=== PATIENT | female | born 1960 | race Caucasian/White ===

== ENCOUNTER 2016-09-27 05:36 | Emergency (ER) | payer OTHER ==
--- NOTE | 2016-09-27 07:51 | DIAGNOSTIC IMAGING REPORT ---
PROCEDURE: CT ABDOMEN/PELVIS W/O CONTRAST INDICATION: HEMATURIA TECHNIQUE: Noncontrast axial images with sagittal and coronal reformations. COMPARISON: None. FINDINGS: ABDOMEN: There is mild left hydronephrosis and hydroureter secondary to a 3 mm calculus in the distal third of the left ureter (axial image 64). There are multiple (6-8) nonobstructing left renal calculi (0.5 - 1 mm). Right kidney and ureter are normal. There is a 3 mm calcified gallstone at the base of the gallbladder. Liver, spleen, pancreas, and aorta are normal. Bowel pattern is normal, including appendix. Mild degenerative changes of the lower lumbar spine. PELVIS: Uterus and adnexal structures are normal. No evidence of free fluid. IMPRESSION: 1. There is mild left hydronephrosis and hydroureter secondary to a 3 mm calculus located in the distal third of the left ureter. 2. There are multiple (6-8) nonobstructing left renal calculi (0.5 - 1 mm). 3. There is a 3 mm calcified gallstone at the neck of the gallbladder (incidental finding). 4. Otherwise negative CT abdomen and pelvis. 5. Findings discussed with Dr. Sandra Schmitz. All CT scans at this facility use dose modulation, iterative reconstruction, and/or weight-based dosing when appropriate to reduce radiation dose to as low as reasonably achievable.
--- NOTE | 2016-09-27 07:53 | ED ORDER SUMMARY ---
..... Patient: ADAL CAMPBELL OrderSheet [facility] VisitID: [id number] [address] [place] [address] 56y, F Registration Date/Time: 09/27/2016 ORDER SHEET Weight: 88.4 kg (stated) Allergies: Codeine, Sulfa Antibiotics GENERAL ORDERS: UA-Culture if indicated Urgent (06:00 09/27/2016 Beto SimpsonNHaley verbal order read back to Mohit CROUCH) (6:01 Beto R.N.) CT Abd/Pel wo Cont Urgent (06:49 09/27/2016 Mohit CROUCH) (Ack 6:53 OSnell) (7:18 RFay) MEDICATION ORDERS: Bactrim DS PO (Tablet 800-160 mg) 1 tab (NOW) (07:31 09/27/2016 Mohit CROUCH) (Ack 7:35 MWinterer R.N.) (Cancelled: Allergy7:49 Mohit CROUCH) Macrobid PO 100 mg (NOW) (07:49 09/27/2016 Mohit CROUCH) (Ack 7:51 MWinterer R.N.) (8:04 MWinterer R.N.) IV FLUIDS: ORDER SHEET NOTES: [Electronically signed by Corina Khan R.N. (08:16 09/27/2016)] [Electronically signed by Sandra Schmitz MD (06:41 10/01/2016)] [Electronically locked/signed by Corina Khan R.N. (08:16 09/27/2016)]
--- NOTE | 2016-09-27 07:53 | ED CLINICAL REPORT ---
Clinical Report - Physicians/[facility] [address] [place] [address] 09/27/2016 5:37 Patient: ADAL CAMPBELL Time Seen: 05:45. Arrived- By private vehicle. Historian- patient. HISTORY OF PRESENT ILLNESS Chief Complaint: BACK PAIN and CHRONIC BACK PAIN. It is described as being moderate in degree and in the area of the left flank and radiating to the abdomen. The quality is noted to be dull and "pain". Quality not similar to prior episodes. Modifying factors. Not worsened by anything. Not relieved by anything. Onset- about 2 hours ago and it is still present. No bladder dysfunction, bowel dysfunction, sensory loss or motor loss. Patient denies an injury. No other injury. Similar symptoms previously: None. ( Pt states this feels different than her chronic back pain, and comes in waves.). Recent medical care: Not recently seen/assessed. REVIEW OF SYSTEMS No fever, chills, eye discomfort, headache or sore throat. No cough, difficulty breathing, chest pain, skin rash or vomiting. No diarrhea, black stools, difficulty with urination, urinary frequency or hematuria. No bloody stools. The patient has had mild abdominal pain. The pain is described as located in the left side of the abdomen and nausea. All systems otherwise negative, except as recorded above. PAST HISTORY Problems: Anxiety Reaction. Additional Surgeries: Breast Augmentation. Tonsillectomy. Medications: Paxil 10 mg, daily. Allergies: Codeine. Sulfa Antibiotics. SOCIAL HISTORY Former smoker. No alcohol use or drug use. ADDITIONAL NOTES The nursing notes have been reviewed. PHYSICAL EXAM Vital Signs: 09/27/2016 05:42 BP: 141/68. HR: 77. RR: 20. O2 saturation: 99%. Temp: 97.8 F. Pain level now: 4/10. Have been reviewed. Appearance: Alert. No acute distress. HEENT: Normal external inspection. Eyes: Pupils equal, round and reactive to light. Neck: Normal inspection. Painless ROM. CVS: Normal heart rate and rhythm. Heart sounds normal. Pulses normal. Respiratory: No respiratory distress. Breath sounds normal. Abdomen: Normal inspection. Soft and nontender. Back: No vertebral point tenderness or soft tissue tenderness. Skin: Skin warm and dry. Normal skin color. No rash. Normal skin turgor. Extremities: Extremities exhibit normal ROM. Extremities nontender. Neuro: Oriented X 3. Mood/affect normal. No motor deficit. No sensory deficit. LABS, X-RAYS, AND EKG CT Abdomen - Pelvis: Normal aorta. Normal liver, spleen, pancreas, gallbladder and adrenals. Appendix normal. No mass. No free fluid. No bony lesion. 1. There is mild left hydronephrosis and hydroureter secondary to a 3 mm calculus located in the distal third of the left ureter. 2. There are multiple (6-8) nonobstructing left renal calculi (0.5 - 1 mm). 3. There is a 3 mm calcified gallstone at the neck of the gallbladder (incidental finding). 4. Otherwise negative CT abdomen and pelvis. Study type: renal stone evaluation; upper abdomen; lower abdomen. Abdomen - pelvic CT performed without contrast. The study was independently viewed by me, interpreted by the radiologist and contemporaneously by me and discussed with the radiologist. Prior studies were not available for comparison. Laboratory Tests: UA-Culture if indicated: (SHAYNA: 09/27/2016 06:00) ( [id number] 09/27/2016 06:43) Final results Test Result Flag Units (Reference) URINE COLOR YELLOW URINE APPEARANCE SL CLOUDY URINE GLUCOSE NEGATIVE (NEGATIVE) URINE BILIRUBIN NEGATIVE (NEGATIVE) URINE KETONE NEGATIVE (NEGATIVE) URINE SPECIFIC GRAVITY >= 1.030 (1.010-1.030) URINE PH 5.5 (5.0-8.0) URINE PROTEIN 1+ (NEGATIVE) URINE UROBILINOGEN 0.2 EU/dL (0.2-1.0) URINE NITRITE NEGATIVE (NEGATIVE) URINE BLOOD 3+ (NEGATIVE) URINE LEUK ESTERASE TRACE (NEGATIVE) URINE RBC 10-25 rbc/hpf (0-1) URINE WBC 1-3 wbc/hpf (0-1) URINE EPITHELIAL CELLS 0-1 EPI/hpf (0-5) URINE BACTERIA TRACE (<1+) (NONE SEEN) URINE COMMENT CULTURE INDICATED CALCIUM OXALATE CRYSTALS: 5-10/HPFMUCUS 2+URINE CULTURES ARE SET-UP BASED ON THE FOLLOWING CRITERIA:POSITIVE NITRITEPOSITIVE LEUKOCYTE ESTERASEGREATER THAN 10 WHITE BLOOD CELLSMODERATE (2+) OR GREATER BACTERIA . Pulse Oximetry: 09/27/2016 05:42 O2 saturation: 99%. (FIO2 - room air). Interpretation: normal. PROGRESS AND PROCEDURES Course of Care: PT was worked up for her sx with a UA and CT abdomen/pelvis. Pt was found to have a small calculus in the L ureter. She was started on Macrobid for possible, mild UTI, and encouraged to follow up, should sx fail to resolve after 1 week. Patient counseled in person regarding the patient's stable condition, test results, diagnosis and need for follow-up. Concerns were addressed. Old medical records reviewed. Disposition: Discharged. Condition: stable. CLINICAL IMPRESSION Left nephrolithiasis with renal colic and urinary tract infection. Acute urinary tract infection with cystitis and hematuria. INSTRUCTIONS Warnings: GENERAL WARNINGS: Return or contact your physician immediately if your condition worsens or changes unexpectedly, if not improving as expected, or if other problems arise. Your Current Medications: CONTINUE TAKING THE FOLLOWING MEDICATIONS: Paxil* : 10 mg daily. Prescription Medications: Hydrocodone/APAP 5mg / 325mg: take 1-2 orally every 6 hours as needed for pain. Dispense twelve (12). No refill. Zofran (orally disintegrating tablets) 4 mg: take 1-2 orally every 6 hours as needed for nausea. Dispense ten (10). No refill. Substitution is permissible. Macrodantin 100 mg: take 1 capsule orally every 6 hours for 7 days. No refill. Substitution is permissible. Follow-up: Follow up with your doctor in seven days if not better. Understanding of the discharge instructions verbalized by patient. (Electronically signed by Sandra Schmitz MD 10/01/2016 6:41)
--- NOTE | 2016-09-27 07:53 | ED NURSING NOTES ---
Clinical Report - Nurses [facility] [address] [place] [address] 09/27/2016 5:37 Patient: ADAL CAMPBELL TRIAGE Triage time 05:42 Sep 27 2016. Acuity: LEVEL 4. Chief Complaint: LEFT-SIDED FLANK PAIN. 05:47 09/27/16. Alert. No acute distress. SEPSIS SCREEN: Sepsis Screen. Negative (no infection suspected/documented). --05:47 Mandy Michael R.N. 05:42 09/27/16. BP: 141/68. HR: 77. RR: 20. O2 saturation: 99% on room air. Temp: 97.8 F. Pain level now: 01/04. --05:47 Mandy Michael R.N. 06:01 09/27/16. --06:01 Mandy Michael R.N. Weight: 88.4 kg stated. Height/Length: 66 inches Per Patient. BMI: 31.5. --05:46 Mandy Michael R.N. Medications Paxil 10 mg, daily. --05:44 Mandy Michael R.N. Medication/allergy information source: the patient. --05:47 Mandy Michael R.N. Allergies Codeine. --05:44 Mandy Michael R.N. Sulfa Antibiotics. --05:44 Mandy Michael R.N. History Arrived by private vehicle. Historian: patient. This started today. ( 3am today with left flank pain/back pain per pt with no injury). She has had flank pain. 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 PAST MEDICAL HX: Immunizations: up-to-date and (tetanus only). SOCIAL HX: Former smoker. No alcohol use or drug use. FALL RISK ASSESSMENT: Fall risk assessment completed. No fall risk identified. NUTRITIONAL RISK ASSESSMENT: The nutritional risk assessment revealed no deficiencies. FUNCTIONAL ASSESSMENT: Functional assessment: no impairments noted. LEARNING NEEDS ASSESSMENT: The learning needs assessment revealed no barriers. SKIN INTEGRITY ASSESSMENT: Skin integrity risk assessment completed. No skin integrity risk identified. --05:47 Mandy Michael R.N. PAST MEDICAL HX: The patient is post-menopausal. --06:01 Mandy Michael R.N. PROBLEMS: Animal Bite. Anxiety Reaction. --05:45 Mandy Michael R.N. ADDITIONAL SURGERIES: Breast Augmentation. Tonsillectomy. --05:45 Mandy Michael R.N. Interventions ID and allergy band on patient. To treatment room. --05:47 Mandy Michael R.N. PHYSICAL ASSESSMENT 05:49 09/27/16. Ambulatory to room. Patient gowned. GENERAL / NEURO / PSYCH: Alert. Oriented X 4. Appears in pain. HEENT: Mucous membranes are pink. RESPIRATORY: Respirations not labored. Breath sounds within normal limits. CVS: Normal heart rate and rhythm. Capillary refill less than 2 seconds. GI / : Abdomen soft. Abdominal tenderness (left flank). Bowel sounds within normal limits. Urgency of urination. SKIN: Skin is warm and dry. BACK: ( left flank/lower back). --05:49 Mandy Michael R.N. NURSING PROGRESS NOTES 05:49 09/27/16. The plan of care for this patient has been created. Patient gowned. Head of bed elevated. Reassurance given. Two patient identifiers checked. Call light placed in reach. Side rails up x 2. Bed placed in lowest position. Brakes of bed on. Patient ready for evaluation- ED physician notified. --05:49 Mandy Michael R.N. 07:54 09/27/2016 Macrobid PO 100 mg given. Allergies verified and confirmed 5 rights. --08:04 Corina Khan R.N. DISPOSITION / DISCHARGE Departure time: 08:00 Sep 27 2016. Condition at departure: improved and stable. No learning barriers present. Reviewed medication(s) side effects, precautions and dosing information. Prescription(s) given to the patient. Patient verbalized understanding. Written instructions provided in Jordanian. The patient was discharged by the physician. She was discharged home and accompanied by spouse. She left the Emergency Department ambulatory and via private vehicle. Spouse driving. --08:16 Corina Khan R.N. 08:15 09/27/16. BP: 147/77. HR: 72. RR: 16. O2 saturation: 98% on room air. Temp: 97.9 F (oral). Pain level now: 02/03. --08:16 Corina Khan R.N. Locked/Released at 09/27/2016 8:16 by Corina Khan R.N.
--- NOTE | 2016-09-27 07:53 | ED NURSING NOTES ---
Clinical Report - Nurses [facility] [address] [place] [address] 09/27/2016 5:37 Patient: ADAL CAMPBELL TRIAGE Triage time 05:42 Sep 27 2016. Acuity: LEVEL 4. Chief Complaint: LEFT-SIDED FLANK PAIN. 05:47 09/27/16. Alert. No acute distress. SEPSIS SCREEN: Sepsis Screen. Negative (no infection suspected/documented). --05:47 Mandy Michael R.N. 05:42 09/27/16. BP: 141/68. HR: 77. RR: 20. O2 saturation: 99% on room air. Temp: 97.8 F. Pain level now: 01/04. --05:47 Mandy Michael R.N. 06:01 09/27/16. --06:01 Mandy Michael R.N. Weight: 88.4 kg stated. Height/Length: 66 inches Per Patient. BMI: 31.5. --05:46 Mandy Michael R.N. Medications Paxil 10 mg, daily. --05:44 Mandy Michael R.N. Medication/allergy information source: the patient. --05:47 Mandy Michael R.N. Allergies Codeine. --05:44 Mandy Michael R.N. Sulfa Antibiotics. --05:44 Mandy Michael R.N. History Arrived by private vehicle. Historian: patient. This started today. ( 3am today with left flank pain/back pain per pt with no injury). She has had flank pain. 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 PAST MEDICAL HX: Immunizations: up-to-date and (tetanus only). SOCIAL HX: Former smoker. No alcohol use or drug use. FALL RISK ASSESSMENT: Fall risk assessment completed. No fall risk identified. NUTRITIONAL RISK ASSESSMENT: The nutritional risk assessment revealed no deficiencies. FUNCTIONAL ASSESSMENT: Functional assessment: no impairments noted. LEARNING NEEDS ASSESSMENT: The learning needs assessment revealed no barriers. SKIN INTEGRITY ASSESSMENT: Skin integrity risk assessment completed. No skin integrity risk identified. --05:47 Mandy Michael R.N. PAST MEDICAL HX: The patient is post-menopausal. --06:01 Mandy Michael R.N. PROBLEMS: Animal Bite. Anxiety Reaction. --05:45 Mandy Michael R.N. ADDITIONAL SURGERIES: Breast Augmentation. Tonsillectomy. --05:45 Mandy Michael R.N. Interventions ID and allergy band on patient. To treatment room. --05:47 Mandy Michael R.N. PHYSICAL ASSESSMENT 05:49 09/27/16. Ambulatory to room. Patient gowned. GENERAL / NEURO / PSYCH: Alert. Oriented X 4. Appears in pain. HEENT: Mucous membranes are pink. RESPIRATORY: Respirations not labored. Breath sounds within normal limits. CVS: Normal heart rate and rhythm. Capillary refill less than 2 seconds. GI / : Abdomen soft. Abdominal tenderness (left flank). Bowel sounds within normal limits. Urgency of urination. SKIN: Skin is warm and dry. BACK: ( left flank/lower back). --05:49 Mandy Michael R.N. NURSING PROGRESS NOTES 05:49 09/27/16. The plan of care for this patient has been created. Patient gowned. Head of bed elevated. Reassurance given. Two patient identifiers checked. Call light placed in reach. Side rails up x 2. Bed placed in lowest position. Brakes of bed on. Patient ready for evaluation- ED physician notified. --05:49 Mandy Michael R.N. 07:54 09/27/2016 Macrobid PO 100 mg given. Allergies verified and confirmed 5 rights. --08:04 Corina Khan R.N. DISPOSITION / DISCHARGE Departure time: 08:00 Sep 27 2016. Condition at departure: improved and stable. No learning barriers present. Reviewed medication(s) side effects, precautions and dosing information. Prescription(s) given to the patient. Patient verbalized understanding. Written instructions provided in Cypriot. The patient was discharged by the physician. She was discharged home and accompanied by spouse. She left the Emergency Department ambulatory and via private vehicle. Spouse driving. --08:16 Corina Khan R.N. 08:15 09/27/16. BP: 147/77. HR: 72. RR: 16. O2 saturation: 98% on room air. Temp: 97.9 F (oral). Pain level now: 02/03. --08:16 Corina Khan R.N. Locked/Released at 09/27/2016 8:16 by Corina Khan R.N.
--- NOTE | 2016-09-27 07:53 | ED ORDER SUMMARY ---
..... Patient: ADAL CAMPBELL OrderSheet [facility] VisitID: [id number] [address] [place] [address] 56y, F Registration Date/Time: 09/27/2016 ORDER SHEET Weight: 88.4 kg (stated) Allergies: Codeine, Sulfa Antibiotics GENERAL ORDERS: UA-Culture if indicated Urgent (06:00 09/27/2016 Beto SimpsonNHaley verbal order read back to Mohit CROUCH) (6:01 Beto R.N.) CT Abd/Pel wo Cont Urgent (06:49 09/27/2016 Mohit CROUCH) (Ack 6:53 OSnell) (7:18 RFay) MEDICATION ORDERS: Bactrim DS PO (Tablet 800-160 mg) 1 tab (NOW) (07:31 09/27/2016 Mohit CROUCH) (Ack 7:35 MWinterer R.N.) (Cancelled: Allergy7:49 Mohit CROUCH) Macrobid PO 100 mg (NOW) (07:49 09/27/2016 Mohit CROUCH) (Ack 7:51 MWinterer R.N.) (8:04 MWinterer R.N.) IV FLUIDS: ORDER SHEET NOTES: [Electronically signed by Corina Khan R.N. (08:16 09/27/2016)] [Electronically signed by Sandra Schmitz MD (06:41 10/01/2016)] [Electronically locked/signed by Corina Khan R.N. (08:16 09/27/2016)]
--- NOTE | 2016-10-01 06:42 | ED MED RECONCILIATION SUMMARY ---
Patient: ADAL CAMPBELL Medication Reconciliation Report [facility] VisitID: [id number] [address] [place] [address] 56y, F Registration Date/Time: 09/27/2016 Weight: 88.4 kg Height/Length: 66 in. BMI: 31.5 ALLERGIES: Codeine, Sulfa Antibiotics The patient's Home Medications are listed below: CONTINUE TAKING THE FOLLOWING MEDICATIONS: Paxil 10 mg, daily The source(s) of the original Home Medication information: patient The following Medications were given to the patient in the Emergency Department: Macrobid [PO] PO 100 mg, administered: 09/27/2016 7:54:00 AM The following Medications were prescribed to the patient: Hydrocodone/APAP 5mg / 325mg: take 1-2 orally every 6 hours as needed for pain. Dispense twelve (12). No refill. -- Sandra Schmitz MD Zofran (orally disintegrating tablets) 4 mg: take 1-2 orally every 6 hours as needed for nausea. Dispense ten (10). No refill. Substitution is permissible. -- Sandra Schmitz MD Macrodantin 100 mg: take 1 capsule orally every 6 hours for 7 days. No refill. Substitution is permissible. -- Sandra Schmitz MD
--- NOTE | 2016-10-01 06:42 | ED MED RECONCILIATION SUMMARY ---
Patient: ADAL CAMPBELL Medication Reconciliation Report [facility] VisitID: [id number] [address] [place] [address] 56y, F Registration Date/Time: 09/27/2016 Weight: 88.4 kg Height/Length: 66 in. BMI: 31.5 ALLERGIES: Codeine, Sulfa Antibiotics The patient's Home Medications are listed below: CONTINUE TAKING THE FOLLOWING MEDICATIONS: Paxil 10 mg, daily The source(s) of the original Home Medication information: patient The following Medications were given to the patient in the Emergency Department: Macrobid [PO] PO 100 mg, administered: 09/27/2016 7:54:00 AM The following Medications were prescribed to the patient: Hydrocodone/APAP 5mg / 325mg: take 1-2 orally every 6 hours as needed for pain. Dispense twelve (12). No refill. -- Sandra Schmitz MD Zofran (orally disintegrating tablets) 4 mg: take 1-2 orally every 6 hours as needed for nausea. Dispense ten (10). No refill. Substitution is permissible. -- Sandra Schmitz MD Macrodantin 100 mg: take 1 capsule orally every 6 hours for 7 days. No refill. Substitution is permissible. -- Sandra Schmitz MD
--- NOTE | 2016-10-01 06:42 | ED DISCHARGE INSTRUCTIONS ---
Patient: ADAL CAMPBELL General Instructions [facility] VisitID: [id number] [place] [address] 56y, F Registration Date/Time: 09/27/2016 Left nephrolithiasis with renal colic and urinary tract infection. Acute urinary tract infection with cystitis and hematuria. INSTRUCTIONS Warnings: GENERAL WARNINGS: Return or contact your physician immediately if your condition worsens or changes unexpectedly, if not improving as expected, or if other problems arise. Your Current Medications: CONTINUE TAKING THE FOLLOWING MEDICATIONS: Paxil* : 10 mg daily. Prescription Medications: Hydrocodone/APAP 5mg / 325mg: take 1-2 orally every 6 hours as needed for pain. Dispense twelve (12). No refill. Zofran (orally disintegrating tablets) 4 mg: take 1-2 orally every 6 hours as needed for nausea. Dispense ten (10). No refill. Substitution is permissible. Macrodantin 100 mg: take 1 capsule orally every 6 hours for 7 days. No refill. Substitution is permissible. Follow-up: Follow up with your doctor in seven days if not better. Understanding of the discharge instructions verbalized by patient. ADDITIONAL INFORMATION Kidney Stone (W/ Colic) The sharp cramping pain and nausea/vomiting that you have is due to a small stone which has formed in the kidney and is now passing down a narrow tube (ureter) on its way to your bladder. Once it reaches your bladder, the pain will stop. The stone may pass in your urine stream in one piece. [The size may be 1/16" to 1/4" (1-6mm)]. Or, the stone may also break up into artis fragments which you may not even notice. Once you have had a kidney stone, you are at risk for developing another one in the future. Home Care: Drink plenty of fluids (at least 8 to 10 glasses of water a day). Most stones will pass on their own, but may take from a few hours to a few days. Sometimes the stone is too large to pass by itself and special methods will have to be used to remove the stone. Each time you urinate, do so in a jar. Pour the urine from the jar through the strainer and into the toilet. Continue doing this until 24 hours after your pain stops. By then, if there was a kidney stone, it should pass from your bladder. Some stones dissolve into sand-like particles and pass right through the strainer. In that case, you wont ever see a stone. Save any stone that you find in the strainer and bring it to your doctor for analysis. It may be possible to prevent certain types of stones from forming. Therefore, it is important to know what kind of stone you have. Try to stay as active as possible since this will help the stone pass. Do not stay in bed unless your pain prevents you from getting up. You may notice a red, pink or brown color to your urine. This is normal while passing a kidney stone. Follow Up with your doctor or return to this facility if the pain lasts more than 48 hours. Get Prompt Medical Attention if any of the following occur: Pain that is not controlled by the medicine given Repeated vomiting or unable to keep down fluids Weakness, dizziness or fainting Fever of 100.4F (38C) or higher, or as directed by your healthcare provider Passage of solid red or brown urine (can't see through it) or urine with lots of blood clots Unable to pass urine for 8 hours and increasing bladder pressure Bladder Infection,Female (Adult) A bladder infection ("cystitis" or "UTI") usually causes a constant urge to urinate and a burning when passing urine. Urine may be cloudy, smelly or dark. There may be pain in the lower abdomen. A bladder infection occurs when bacteria from the vaginal area enter the bladder opening (urethra). This can occur from sexual intercourse, wearing tight clothing, dehydration and other factors. Home Care: Drink lots of fluids (at least 6-8 glasses a day, unless you must restrict fluids for other medical reasons). This will force the medicine into your urinary system and flush the bacteria out of your body. Avoid sexual intercourse until your symptoms are gone. Avoid caffeine, alcohol and spicy foods. These can irritate the bladder. A bladder infection is treated with antibiotics. You may also be given Pyridium (generic = phenazopyridine) to reduce the burning sensation. This medicine will cause your urine to become a bright orange color. The orange urine may stain clothing. You may wear a pad or panty-liner to protect clothing. Preventing Future Infections: Always wipe from front to back after a bowel movement. Keep the genital area clean and dry. Drink plenty of fluids each day to avoid dehydration. Both sexual partners should wash before intercourse. Urinate right after intercourse to flush out the bladder. Wear cotton underwear and cotton-lined panty hose; avoid tight-fitting pants. If you are on control pills and are having frequent bladder infections, discuss with your doctor. Follow Up: Return to this facility or see your doctor if ALL symptoms are not gone after three days of treatment. Get Prompt Medical Attention if any of the following occur: Fever of 100.4F (38C) or higher, or as directed by your healthcare provider No improvement by the third day of treatment Increasing back or abdominal pain Repeated vomiting; unable to keep medicine down Weakness, dizziness or fainting Vaginal discharge Pain, redness or swelling in the labia (outer vaginal area) You have been given the following additional information: Kidney Stone W/ Colic Bladder Infection, Female (Adult) (Electronically signed by Sandra Schmitz MD 10/01/2016 6:41)
--- NOTE | 2016-10-01 06:42 | ED MAR SUMMARY ---
..... Medication Administration Record [address] [place] [address] Patient: ADAL CAMPBELL Visit ID: [id number] 56y, F Weight: 88.4 kg Height/Length: 66 in BMI: 31.5 ALLERGIES: Sulfa Antibiotics, Codeine Given 07:54 09/27/2016 Corina Khan R.N. Medication Administered: MACROBID [PO], Dose: 100 mg PO. Medication Ordered: Macrobid PO 100 mg (NOW).
--- NOTE | 2016-10-01 06:42 | ED MAR SUMMARY ---
..... Medication Administration Record [address] [place] [address] Patient: ADAL CAMPBELL Visit ID: [id number] 56y, F Weight: 88.4 kg Height/Length: 66 in BMI: 31.5 ALLERGIES: Sulfa Antibiotics, Codeine Given 07:54 09/27/2016 Corina Khan R.N. Medication Administered: MACROBID [PO], Dose: 100 mg PO. Medication Ordered: Macrobid PO 100 mg (NOW).
== END 2016-09-27 08:00 | disposition home or self-care (01) ==
LOC: ED SRH 05:36
DX: N30.01 Acute cystitis with hematuria (principal); N20.0 Calculus of kidney; N23 Unspecified renal colic; Z88.2 Allergy status to sulfonamides; Z88.5 Allergy status to narcotic agent
CPT/HCPCS: 90004; 90469

== ENCOUNTER 2017-03-17 15:50 | Emergency (ER) | payer OTHER ==
--- NOTE | 2017-03-17 16:54 | DIAGNOSTIC IMAGING REPORT ---
PROCEDURE: XR CHEST 1 VIEW INDICATION: SHORTNESS OF BREATH TECHNIQUE: Portable AP view 04:15 p.m. COMPARISON: Chest 10/01/2009 FINDINGS: Lungs are clear. Heart and mediastinum are normal. Thorax is normal. IMPRESSION: 1. Negative chest.
--- NOTE | 2017-03-17 18:21 | ED NURSING NOTES ---
Clinical Report - Nurses [facility] [place] [address] 03/17/2017 15:51 Patient: ADAL CAMPBELL TRIAGE Triage time 16:00. Acuity: LEVEL 3. Chief Complaint: SHORTNESS OF BREATH. 15:53 03/17/17. 15:53 03/17/17. Alert. SEPSIS SCREEN: Sepsis Screen. Negative (no infection suspected/documented). --16:01 Sandeep Cardenas R.N. 15:52 03/17/17. BP: 119/97. HR: 88. RR: 20. O2 saturation: 100% on room air. Temp: 97.8 F (oral). Pain level now: 0/10. --16:01 Sandeep Cardenas R.N. ( Pt has been under a lot of stress recently due to family issues, demanding parents, aging parents). --16:04 Sandeep Cardenas R.N. Weight: 88.4 kg stated. Height/Length: 66 inches Per Patient. BMI: 31.5. --15:53 Sandeep Cardenas R.N. Medications Amoxicillin Oral. --15:55 Sandeep Cardenas R.N. Medication/allergy information source: the patient. --16:01 Sandeep Cardenas R.N. Allergies Codeine. Sulfa Antibiotics. --15:55 Sandeep Cardenas R.N. History Arrived by private vehicle. Historian: patient. Accompanied by family. Primary physician (LALITO HARKINS). 15:53 03/17/17. ( 2 DAYS AGO, pt was started on abx this past Wednesday for right ear infection.). No fever, chills or cough. 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 PAST MEDICAL HX: Immunizations not up to date. SOCIAL HX: Never smoker. No alcohol use or drug use. No infectious disease exposure. ABUSE ASSESSMENT: No report of abuse. FALL RISK ASSESSMENT: Fall risk assessment completed. No fall risk identified. NUTRITIONAL RISK ASSESSMENT: The nutritional risk assessment revealed no deficiencies. FUNCTIONAL ASSESSMENT: Functional assessment: no impairments noted. LEARNING NEEDS ASSESSMENT: The learning needs assessment revealed no barriers. SKIN INTEGRITY ASSESSMENT: Skin integrity risk assessment completed. No skin integrity risk identified. --16:01 Sandeep Cardenas R.N. PROBLEMS: UTI - Urinary Tract Infection. Nephrolithiasis. Animal Bite. Anxiety Reaction. --15:55 Sandeep Cardenas R.N. ADDITIONAL SURGERIES: Breast Augmentation. Tonsillectomy. --15:55 Sandeep Cardenas R.N. Assessment 15:53 03/17/17. --16:01 Sandeep Cardenas R.N. Interventions 15:53 03/17/17. 15:53 03/17/17. ID and allergy band on patient. To treatment room. --16:01 Sandeep Cardenas R.N. PHYSICAL ASSESSMENT 15:54 03/17/17. Ambulatory to room. GENERAL / NEURO / PSYCH: Alert. Oriented X 4. RESPIRATORY: Mild respiratory distress. The patient can speak a few words at a time. CVS: Capillary refill less than 2 seconds. SKIN: Skin is warm and dry. --15:54 Sandeep Cardenas R.N. NURSING PROGRESS NOTES 15:54 03/17/17. The plan of care for this patient has been created. shelter monitor, pulse oximeter and NIBP monitor placed on patient; monitor alarms on. Patient gowned. Head of bed elevated. Two patient identifiers checked. Call light placed in reach. Side rails up x 2. Bed placed in lowest position. Brakes of bed on. --15:54 Sandeep Cardenas R.N. 15:58 03/17/2017 Site #1 started via IV in the right antecubital space with an 20g angiocath, with aseptic technique and good blood return; one attempt. Blood drawn: rainbow set. Labeled in the presence of the patient and sent to the lab. Saline lock flushed with 10 mL saline. --15:58 Sandeep Cardenas R.N. 16:00 03/17/17. EKG time: (1601 PM). EKG was ordered, performed by a tech and shown to the ED physician. --16:00 Sandeep Cardenas R.N. 16:03/17/17. Cardiac rhythm: normal sinus rhythm. --16:00 Sandeep Cardenas R.N. 16:01 03/17/17. shelter monitor, pulse oximeter and NIBP monitor placed on patient. --16:01 Sandeep Cardenas R.N. 16:03 03/17/17. Cardiac rhythm: normal sinus rhythm. --16:04 Sandeep Cardenas R.N. 16:03 03/17/17. BP: 132/70. HR: 83. RR: 20. O2 saturation: 100% on room air. --16:04 Sandeep Cardenas R.N. 16:07 03/17/17. ( Placed on oxygen at 2L for patient comfort). --16:07 Sandeep Cardenas R.N. 16:03/17/17. --16:07 Sandeep Cardenas R.N. 16:03/17/17. O2 saturation: 100%. O2 started via nasal cannula at 2 liters/minute. --16:07 Sandeep Cardenas R.N. 16:51 03/17/17. Patient and family informed about reason for wait and about plan of care. --16:51 Sandeep Cardenas R.N. 17:00 03/17/17. ( at bedside). --17:00 Sandeep Cardenas R.N. 17:36 03/17/17. Patient ID band checked for patient name and birthdate. Clean catch urine collected with return of cassidy-colored urine; sample sent to lab for urinalysis and culture. Specimen labeled in the presence of the patient. --17:36 Sandeep Cardenas R.N. 17:51 03/17/17. Patient and family informed about reason for wait and about plan of care. --17:51 Sandeep Cardenas R.N. 17:51 03/17/17. Patient waiting for disposition. --17:51 Sandeep Cardenas R.N. DISPOSITION / DISCHARGE 18:50 03/17/2017 Site #1 removed upon discharge. Catheter intact. --18:50 Sandeep Cardenas R.N. 18:51 03/17/17. Condition at departure: improved. The goals identified in the patient's plan of care were met. No learning barriers present. Discharge instructions provided and reviewed with the patient and spouse. Reviewed warnings. Reviewed medication(s). Treatments reviewed. Patient and spouse verbalized understanding. Written instructions provided in Macedonian. The patient was discharged by the physician. She was discharged home and accompanied by family. She left the Emergency Department ambulatory and via private vehicle. Family member driving. FALL RISK ASSESSMENT: Fall risk assessment completed. No fall risk identified. --18:51 Sandeep Cardenas R.N. 18:50 03/17/17. BP: 116/72. HR: 80. RR: 15. O2 saturation: 99% on room air. Temp: 98.2 F (oral). --18:51 Sandeep Cardenas R.N. 18:51 03/17/17. Departure time: 18:51 Mar 17 2017. --18:51 Sandeep Cardenas R.N. Locked/Released at 03/17/2017 18:53 by Sandeep Cardenas R.N.
--- NOTE | 2017-03-17 18:21 | ED ORDER SUMMARY ---
..... Patient: ADAL CAMPBELL OrderSheet [facility] VisitID: [id number] [place] [address] 56y, F Registration Date/Time: 03/17/2017 ORDER SHEET Weight: 88.4 kg (stated) Allergies: Codeine, Sulfa Antibiotics GENERAL ORDERS: Chest 1V Urgent (15:57 03/17/2017 JBoardley R.N. per protocol) (Ack 16:06 LNations ER Tech1) (16:13 JBoardley R.N.) Digital Coordinator (Continuous) (15:58 03/17/2017 JBoardley R.N. per protocol) (15:58 JBoardley R.N.) CBC w Diff Urgent (15:58 03/17/2017 JBoardley R.N. per protocol) (Ack 16:06 LNations ER Tech1) (16:13 JBoardley R.N.) CMP Urgent (15:58 03/17/2017 JBoardley R.N. per protocol) (Ack 16:06 LNations ER Tech1) (16:13 JBoardley R.N.) Pulse oximeter (15:58 03/17/2017 JBoardley R.N. per protocol) (15:58 JBoardley R.N.) EKG - ER Stat (15:58 03/17/2017 JBoardley R.N. per protocol) (15:58 JBoardley R.N.) Amylase Urgent (16:05 03/17/2017 Wallace CROUCH) (Ack 16:06 LNations ER Tech1) (16:13 JBoardley R.N.) Lipase Urgent (16:05 03/17/2017 Wallace CROUCH) (Ack 16:06 LNations ER Tech1) (16:13 JBoardley R.N.) CPK Urgent (16:05 03/17/2017 Wallace CROUCH) (Ack 16:06 LNations ER Tech1) (16:13 JBoardley R.N.) Troponin-I Urgent (16:05 03/17/2017 Wallace CROUCH) (Ack 16:06 LNations ER Tech1) (16:13 JBoardley R.N.) BNP Urgent (16:05 03/17/2017 Wallace CROUCH) (Ack 16:06 LNations ER Tech1) (16:13 JBoardley R.N.) D-Dimer Urgent (16:05 03/17/2017 Wallace CROUCH) (Ack 16:06 LNations ER Tech1) (16:13 JBoardley R.N.) UA-Culture if indicated Urgent (17:06 03/17/2017 Wallace CROUCH) (Ack 17:21 LNations ER Tech1) (17:35 JBoardley R.N.) MEDICATION ORDERS: IV FLUIDS: IV Saline Lock (15:58 03/17/2017 JBoardley R.N. per protocol) (15:58 JBoardley R.N.) IV Saline Lock (16:05 03/17/2017 Wallace CROUCH) (Cancelled: Other16:06 JBoardley R.N.) ORDER SHEET NOTES: [Electronically signed by Sandeep Cardenas R.N. (18:53 03/17/2017)] [Electronically signed by Fredi Loyola MD (21:30 03/18/2017)] [Electronically locked/signed by Sandeep Cardenas R.N. (18:53 03/17/2017)]
--- NOTE | 2017-03-17 18:21 | ED NURSING NOTES ---
Clinical Report - Nurses [facility] [place] [address] 03/17/2017 15:51 Patient: ADAL CAMPBELL TRIAGE Triage time 16:00. Acuity: LEVEL 3. Chief Complaint: SHORTNESS OF BREATH. 15:53 03/17/17. 15:53 03/17/17. Alert. SEPSIS SCREEN: Sepsis Screen. Negative (no infection suspected/documented). --16:01 Sandeep Cardenas R.N. 15:52 03/17/17. BP: 119/97. HR: 88. RR: 20. O2 saturation: 100% on room air. Temp: 97.8 F (oral). Pain level now: 0/10. --16:01 Sandeep Cardenas R.N. ( Pt has been under a lot of stress recently due to family issues, demanding parents, aging parents). --16:04 Sandeep Cardenas R.N. Weight: 88.4 kg stated. Height/Length: 66 inches Per Patient. BMI: 31.5. --15:53 Sandeep Cardenas R.N. Medications Amoxicillin Oral. --15:55 Sandeep Cardenas R.N. Medication/allergy information source: the patient. --16:01 Sanedep Cardenas R.N. Allergies Codeine. Sulfa Antibiotics. --15:55 Sandeep Cardenas R.N. History Arrived by private vehicle. Historian: patient. Accompanied by family. Primary physician (LALITO HARKINS). 15:53 03/17/17. ( 2 DAYS AGO, pt was started on abx this past Wednesday for right ear infection.). No fever, chills or cough. 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 PAST MEDICAL HX: Immunizations not up to date. SOCIAL HX: Never smoker. No alcohol use or drug use. No infectious disease exposure. ABUSE ASSESSMENT: No report of abuse. FALL RISK ASSESSMENT: Fall risk assessment completed. No fall risk identified. NUTRITIONAL RISK ASSESSMENT: The nutritional risk assessment revealed no deficiencies. FUNCTIONAL ASSESSMENT: Functional assessment: no impairments noted. LEARNING NEEDS ASSESSMENT: The learning needs assessment revealed no barriers. SKIN INTEGRITY ASSESSMENT: Skin integrity risk assessment completed. No skin integrity risk identified. --16:01 Sandeep Cardenas R.N. PROBLEMS: UTI - Urinary Tract Infection. Nephrolithiasis. Animal Bite. Anxiety Reaction. --15:55 Sandeep Cardenas R.N. ADDITIONAL SURGERIES: Breast Augmentation. Tonsillectomy. --15:55 Sandeep Cardenas R.N. Assessment 15:53 03/17/17. --16:01 Sandeep Cardenas R.N. Interventions 15:53 03/17/17. 15:53 03/17/17. ID and allergy band on patient. To treatment room. --16:01 Sandeep Cardenas R.N. PHYSICAL ASSESSMENT 15:54 03/17/17. Ambulatory to room. GENERAL / NEURO / PSYCH: Alert. Oriented X 4. RESPIRATORY: Mild respiratory distress. The patient can speak a few words at a time. CVS: Capillary refill less than 2 seconds. SKIN: Skin is warm and dry. --15:54 Sandeep Cardenas R.N. NURSING PROGRESS NOTES 15:54 03/17/17. The plan of care for this patient has been created. surveillance monitor, pulse oximeter and NIBP monitor placed on patient; monitor alarms on. Patient gowned. Head of bed elevated. Two patient identifiers checked. Call light placed in reach. Side rails up x 2. Bed placed in lowest position. Brakes of bed on. --15:54 Sandeep Cardenas R.N. 15:58 03/17/2017 Site #1 started via IV in the right antecubital space with an 20g angiocath, with aseptic technique and good blood return; one attempt. Blood drawn: rainbow set. Labeled in the presence of the patient and sent to the lab. Saline lock flushed with 10 mL saline. --15:58 Sandeep Cardenas R.N. 16:00 03/17/17. EKG time: (1601 PM). EKG was ordered, performed by a tech and shown to the ED physician. --16:00 Sandeep Cardenas R.N. 16:03/17/17. Cardiac rhythm: normal sinus rhythm. --16:00 Sandeep Cardenas R.N. 16:01 03/17/17. surveillance monitor, pulse oximeter and NIBP monitor placed on patient. --16:01 Sandeep Cardenas R.N. 16:03 03/17/17. Cardiac rhythm: normal sinus rhythm. --16:04 Sandeep Cardenas R.N. 16:03 03/17/17. BP: 132/70. HR: 83. RR: 20. O2 saturation: 100% on room air. --16:04 Sandeep Cardenas R.N. 16:07 03/17/17. ( Placed on oxygen at 2L for patient comfort). --16:07 Sandeep Cardenas R.N. 16:03/17/17. --16:07 Sandeep Cardenas R.N. 16:03/17/17. O2 saturation: 100%. O2 started via nasal cannula at 2 liters/minute. --16:07 Sandeep Cardenas R.N. 16:51 03/17/17. Patient and family informed about reason for wait and about plan of care. --16:51 Sandeep Cardenas R.N. 17:00 03/17/17. ( at bedside). --17:00 Sandeep Cardenas R.N. 17:36 03/17/17. Patient ID band checked for patient name and birthdate. Clean catch urine collected with return of cassidy-colored urine; sample sent to lab for urinalysis and culture. Specimen labeled in the presence of the patient. --17:36 Sandeep Cardenas R.N. 17:51 03/17/17. Patient and family informed about reason for wait and about plan of care. --17:51 Sandeep Cardenas R.N. 17:51 03/17/17. Patient waiting for disposition. --17:51 Sandeep Cardenas R.N. DISPOSITION / DISCHARGE 18:50 03/17/2017 Site #1 removed upon discharge. Catheter intact. --18:50 Sandeep Cardenas R.N. 18:51 03/17/17. Condition at departure: improved. The goals identified in the patient's plan of care were met. No learning barriers present. Discharge instructions provided and reviewed with the patient and spouse. Reviewed warnings. Reviewed medication(s). Treatments reviewed. Patient and spouse verbalized understanding. Written instructions provided in Yoruba. The patient was discharged by the physician. She was discharged home and accompanied by family. She left the Emergency Department ambulatory and via private vehicle. Family member driving. FALL RISK ASSESSMENT: Fall risk assessment completed. No fall risk identified. --18:51 Sandeep Cardenas R.N. 18:50 03/17/17. BP: 116/72. HR: 80. RR: 15. O2 saturation: 99% on room air. Temp: 98.2 F (oral). --18:51 Sandeep Cardenas R.N. 18:51 03/17/17. Departure time: 18:51 Mar 17 2017. --18:51 Sandeep Cardenas R.N. Locked/Released at 03/17/2017 18:53 by Sandeep Cardenas R.N.
--- NOTE | 2017-03-17 18:21 | ED ORDER SUMMARY ---
..... Patient: ADAL CAMPBELL OrderSheet [facility] VisitID: [id number] [place] [address] 56y, F Registration Date/Time: 03/17/2017 ORDER SHEET Weight: 88.4 kg (stated) Allergies: Codeine, Sulfa Antibiotics GENERAL ORDERS: Chest 1V Urgent (15:57 03/17/2017 JBoardley R.N. per protocol) (Ack 16:06 LNations ER Tech1) (16:13 JBoardley R.N.) Hospice Coordinator (Continuous) (15:58 03/17/2017 JBoardley R.N. per protocol) (15:58 JBoardley R.N.) CBC w Diff Urgent (15:58 03/17/2017 JBoardley R.N. per protocol) (Ack 16:06 LNations ER Tech1) (16:13 JBoardley R.N.) CMP Urgent (15:58 03/17/2017 JBoardley R.N. per protocol) (Ack 16:06 LNations ER Tech1) (16:13 JBoardley R.N.) Pulse oximeter (15:58 03/17/2017 JBoardley R.N. per protocol) (15:58 JBoardley R.N.) EKG - ER Stat (15:58 03/17/2017 JBoardley R.N. per protocol) (15:58 JBoardley R.N.) Amylase Urgent (16:05 03/17/2017 Wallace CROUCH) (Ack 16:06 LNations ER Tech1) (16:13 JBoardley R.N.) Lipase Urgent (16:05 03/17/2017 Wallace CROUCH) (Ack 16:06 LNations ER Tech1) (16:13 JBoardley R.N.) CPK Urgent (16:05 03/17/2017 Wallace CROUCH) (Ack 16:06 LNations ER Tech1) (16:13 JBoardley R.N.) Troponin-I Urgent (16:05 03/17/2017 Wallace CROUCH) (Ack 16:06 LNations ER Tech1) (16:13 JBoardley R.N.) BNP Urgent (16:05 03/17/2017 Wallace CROUCH) (Ack 16:06 LNations ER Tech1) (16:13 JBoardley R.N.) D-Dimer Urgent (16:05 03/17/2017 Wallace CROUCH) (Ack 16:06 LNations ER Tech1) (16:13 JBoardley R.N.) UA-Culture if indicated Urgent (17:06 03/17/2017 Wallace CROUCH) (Ack 17:21 LNations ER Tech1) (17:35 JBoardley R.N.) MEDICATION ORDERS: IV FLUIDS: IV Saline Lock (15:58 03/17/2017 JBoardley R.N. per protocol) (15:58 JBoardley R.N.) IV Saline Lock (16:05 03/17/2017 Wallace CROUCH) (Cancelled: Other16:06 JBoardley R.N.) ORDER SHEET NOTES: [Electronically signed by Sandeep Cardenas R.N. (18:53 03/17/2017)] [Electronically signed by Fredi Loyola MD (21:30 03/18/2017)] [Electronically locked/signed by Sandeep Cardenas R.N. (18:53 03/17/2017)]
--- NOTE | 2017-03-17 18:21 | ED CLINICAL REPORT ---
Clinical Report - Physicians/Mid Levels [facility] [address] [place] [address] 03/17/2017 15:51 Patient: ADAL CAMPBELL Time Seen: 16:03. Arrived- By private vehicle. Historian- patient. HISTORY OF PRESENT ILLNESS Chief Complaint: DYSPNEA. This started several days ago and is still present. It was gradual in onset and has been intermittent and waxing/waning. The dyspnea is described as moderate and is worsened by being in a supine position. The patient has had a mild dry cough. No fever, dyspnea on exertion, chest pain or discomfort or calf pain. No foot swelling. She has experienced sweating episodes and had chills, anxiety, dizziness and tingling. She has had mild, intermittent palpitations (chronically). (She has had a "cold" recently). REVIEW OF SYSTEMS No calf pain, pedal edema, abdominal pain, black stools or bloody stools. No constipation, diarrhea, nausea or vomiting. She has had hesitancy (for 1 week intermittently). All systems otherwise negative, except as recorded above. PAST HISTORY PCP - LALITO HARKINS Problems: UTI - Urinary Tract Infection. Nephrolithiasis. Animal Bite. Anxiety Reaction. Additional Surgeries: Breast Augmentation. Tonsillectomy. Medications: Amoxicillin Oral. Allergies: Codeine. Sulfa Antibiotics. SOCIAL HISTORY Former smoker, end date 1980. No alcohol use or drug use. FAMILY HISTORY Diabetes in first-degree relative (sibling). mother with dementia, CVA, alcoholism, DVT father with Parkinson's and early dementia. ADDITIONAL NOTES The nursing notes have been reviewed. PHYSICAL EXAM Vital Signs: 03/17/2017 15:52 BP: 119/97. HR: 88. RR: 20. O2 saturation: 100%. Temp: 97.8 F. Pain level now: 0/10. Have been reviewed. Appearance: Alert. Anxious. Eyes: Pupils equal, round and reactive to light. ENT: Pharynx normal. Neck: Normal inspection. CVS: Normal heart rate and rhythm. Heart sounds normal. Respiratory: No respiratory distress. Breath sounds normal. Abdomen: Soft and nontender. No organomegaly. Back: Normal inspection. No CVA tenderness. Skin: Skin warm and dry. Normal skin color. No rash. Normal skin turgor. Extremities: Lower extremity edema present. Extremities do not exhibit normal ROM. No calf tenderness. LABS, X-RAYS, AND EKG EKG: Rate: 91. Right and left atrial enlargement. Non-specific ST segment / T wave abnormalities. Prolonged QT (396 ms). Prolonged QTc (487 ms). Changes present when compared to prior EKG. (01 Oct 2009). The study has been independently viewed by me. Chest X-ray: No acute disease. The X-rays were independently viewed by me. Laboratory Tests: CBC w Diff: (SHAYNA: 03/17/2017 16:00) ( MsgRcvd 03/17/2017 16:17) Final results Test Result Flag Units (Reference) WHITE BLOOD COUNT 7.4 K/uL (4.5-11.5) RED BLOOD COUNT 5.97 H M/uL (4.00-5.20) HEMOGLOBIN 16.7 H gm/dL (12.0-16.0) HEMATOCRIT 50.0 H % (36.0-46.0) MEAN CELL VOLUME 84 fL (80-100) MEAN CORPUSCULAR HGB 28 pg (26-34) MEAN CORPUSCULAR HGB CONC 34 g/dL (31-37) RED CELL DISTRIBUTION WIDTH 12.7 % (11.6-14.8) PLATELET COUNT 98 L K/uL (150-400) NEUTROPHIL % 61.3 % (50-75) LYMPH % 32.4 % (25-40) MONO % 4.9 % (3-14) EOSINOPHIL % 1.0 % (0-4) BASOPHIL % 0.4 % (0-2) [id number]: (SHAYNA: 03/17/2017 16:00) ( MsgRcvd 03/17/2017 16:27) Final results Test Result Flag Units (Reference) D-DIMER QUANTITATIVE < 0.27 L ug/mLFEU (0.27-0.52) The primary value of this quantitative assay relates toits negative predictive value (i.e. exclusion) of pulmonaryembolism/deep vein thrombosis/DIC.Elevated levels of d-dimer may also occur with:, age, cancer, inflammation, liver disease,post-op, infection, hematoma, coronary disease, peripheralarteriopathy, bleeding disorders and thrombolytic treatment.Results should be correlated with other clinical andradiological data.Testing Methodology: Latex Immunoassay BNP: (SHAYNA: 03/17/2017 16:00) ( [facility] 03/17/2017 16:40) Final results Test Result Flag Units (Reference) B-TYPE NATRIURETIC PEPTIDE 49.4 pg/ml (5-100) Lipase: (SHAYNA: 03/17/2017 16:00) ( [facility] 03/17/2017 16:43) Final results Test Result Flag Units (Reference) LIPASE 158 U/L (73-393) AMYLASE 58 U/L (25-115) CPK 61 U/L (24-260) TROPONIN I <0.05 L ng/mL (0.00-1.5) TROPONIN REFERENCE RANGE:<0.1 NEGATIVE0.1-1.5 INDETERMINANT>1.5 POSITIVE CMP: (SHAYNA: 03/17/2017 16:00) ( [facility] 03/17/2017 16:53) Final results Test Result Flag Units (Reference) GLUCOSE 104 mg/dL (70-110) BUN 18 mg/dL (7-18) CREATININE 0.7 mg/dL (0.6-1.3) Estimated GFR >60 mL/min Estimated GFR- >60 mL/min Note: Persistent reduction over 3 months in eGFR<60 mL/min/1.73 m2 defines CKD. Patients with eGFR values>=60 mL/min/1.73 m2 may also have CKD if evidence ofpersistent proteinuria. Additional information may be foundat www.kidney.org. SODIUM 141 mmol/L (136-145) POTASSIUM 3.4 L mmol/L (3.5-5.1) CHLORIDE 103 mmol/L (98-107) CARBON DIOXIDE 26 mmol/L (21-32) CALCIUM 9.8 mg/dL (8.5-10.1) TOTAL PROTEIN 8.4 H g/dL (6.4-8.2) ALBUMIN 4.4 g/dL (3.3-5.0) BILIRUBIN, TOTAL 0.7 mg/dL (0.0-1.0) ALKALINE PHOSPHATASE 98 U/L (46-116) AST (SGOT) 53 H U/L (15-37) ALT (SGPT) 37 U/L (12-78) . CLINICAL IMPRESSION Acute dyspnea Anxiety reaction with hyperventilation. nasal congestion. INSTRUCTIONS (talk with your doctor about whether he would benefit from a sleep study, stress testing and or pulmonary function testing as discussed.). Warnings: Further evaluation is necessary. GENERAL WARNINGS: Return or contact your physician immediately if your condition worsens or changes unexpectedly, if not improving as expected, or if other problems arise. OTC Medications: Afrin nasal spray (Available over the counter): 1 spray to each nostril twice daily for 3 days, for congestion. Follow-up: Follow up with your doctor LALITO HARKINS in seven days. Call for the next available appointment. Understanding of the discharge instructions verbalized by patient. (Electronically signed by Fredi Loyola MD 03/18/2017 21:30)
--- NOTE | 2017-03-18 21:31 | ED MED RECONCILIATION SUMMARY ---
Patient: ADAL CAMPBELL Medication Reconciliation Report [facility] VisitID: [id number] [address] [place] [address] 56y, F Registration Date/Time: 03/17/2017 Weight: 88.4 kg Height/Length: 66 in. BMI: 31.5 ALLERGIES: Codeine, Sulfa Antibiotics The patient's Home Medications are listed below: THE FOLLOWING MEDICATIONS NEED TO BE RECONCILED: Amoxicillin Oral The source(s) of the original Home Medication information: patient The following Medications were given to the patient in the Emergency Department: None. The following Medications were prescribed to the patient: Afrin nasal spray (Available over the counter): 1 spray to each nostril twice daily for 3 days, for congestion. -- Fredi Loyola MD
--- NOTE | 2017-03-18 21:31 | ED MAR SUMMARY ---
..... Medication Administration Record [facility] [address] [place], [place] [id number] Patient: ADAL CAMPBELL Visit ID: [id number] 56y, F Weight: 88.4 kg Height/Length: 66 in BMI: 31.5 ALLERGIES: Codeine, Sulfa Antibiotics
--- NOTE | 2017-03-18 21:31 | ED MAR SUMMARY ---
..... Medication Administration Record [facility] [address] [place], [place] [id number] Patient: ADAL CAMPBELL Visit ID: [id number] 56y, F Weight: 88.4 kg Height/Length: 66 in BMI: 31.5 ALLERGIES: Codeine, Sulfa Antibiotics
--- NOTE | 2017-03-18 21:31 | ED MED RECONCILIATION SUMMARY ---
Patient: ADAL CAMPBELL Medication Reconciliation Report [facility] VisitID: [id number] [address] [place] [address] 56y, F Registration Date/Time: 03/17/2017 Weight: 88.4 kg Height/Length: 66 in. BMI: 31.5 ALLERGIES: Codeine, Sulfa Antibiotics The patient's Home Medications are listed below: THE FOLLOWING MEDICATIONS NEED TO BE RECONCILED: Amoxicillin Oral The source(s) of the original Home Medication information: patient The following Medications were given to the patient in the Emergency Department: None. The following Medications were prescribed to the patient: Afrin nasal spray (Available over the counter): 1 spray to each nostril twice daily for 3 days, for congestion. -- Fredi Loyola MD
--- NOTE | 2017-03-18 21:31 | ED DISCHARGE INSTRUCTIONS ---
Patient: ADAL CAMPBELL General Instructions [facility] VisitID: [id number] [place] [address] 56y, F Registration Date/Time: 03/17/2017 Acute dyspnea Anxiety reaction with hyperventilation. nasal congestion. INSTRUCTIONS (talk with your doctor about whether he would benefit from a sleep study, stress testing and or pulmonary function testing as discussed.). Warnings: Further evaluation is necessary. GENERAL WARNINGS: Return or contact your physician immediately if your condition worsens or changes unexpectedly, if not improving as expected, or if other problems arise. OTC Medications: Afrin nasal spray (Available over the counter): 1 spray to each nostril twice daily for 3 days, for congestion. Follow-up: Follow up with your doctor LALITO HARKINS in seven days. Call for the next available appointment. Understanding of the discharge instructions verbalized by patient. ADDITIONAL INFORMATION Stress Reaction Anxiety is the feeling we all get when we think something bad might happen. It is a normal response to stress and usually causes only a mild reaction. When anxiety becomes more severe, emotions may interfere with daily life. In some cases, you may not even be aware of what it is youre anxious about! During an anxiety reaction, you may feel like you are helpless, nervous, depressed or irritable. Your body may show signs of anxiety in many ways. You may experience dry mouth, shakiness, dizziness, weakness, trouble breathing, chest pressure, headache, nausea, diarrhea, tiredness, inability to sleep or sexual problems. Home Care: 1) Try to locate the sources of stress in your life. They may not be obvious! These may include: -- Daily hassles of life which pile up (traffic jams, missed appointments, car troubles, etc.) -- Major life changes, both good (new baby, job promotion) and bad (loss of job, loss of loved one) -- Overload: feeling that you have too many responsibilities and can't take care of all of them at once -- Feeling helpless, feeling that your problems are beyond what youre able to solve 2) Notice how your body reacts to stress. Learn to listen to your body signals. This will help you take action before the stress becomes severe. 3) When you can, do something about the source of your stress. (Avoid hassles, limit the amount of change that happens in your life at one time and take a break when you feel overloaded). 4) Unfortunately, many stressful situations cannot be avoided. It is necessary to learn HOW TO MANAGE STRESS better. There are many proven methods that will reduce your anxiety. These include simple things like exercise, good nutrition and adequate rest. Also, there are certain techniques that are helpful: relaxation and breathing exercises, visualization, biofeedback and meditation. For more information about this, consult your doctor or go to a local bookstore and review the many books and tapes available on this subject. Follow Up If you feel that your anxiety is not responding to self-help measures, contact your doctor or make an appointment with a counselor. Get Prompt Medical Attention if any of the following occur: -- Your symptoms get worse -- Chest pain or trouble breathing -- Severe headache not relieved by rest and mild pain reliever -- Rapid or irregular heartbeat, fainting Hyperventilation Syndrome Hyperventilation Syndrome is a condition in which you lose control of your breathing. You may find yourself breathing too fast and/or too deep. This can be triggered by pain, anxiety and emotional stress. If hyperventilation continues for more than a few minutes, it can lead to a number of frightening symptoms, such as: Numbness and tingling of the hands, feet and face Clenching of the fingers or toes Dizziness Feeling like you cannot get enough air Chest pains Fainting or feeling like you are going to faint Once these symptoms begin, it is often hard to stop them because they lead to a cycle of more anxiety and more hyperventilation. It is important to understand that this is not a life-threatening condition and it will pass once you are able to relax. Relaxation and stress management methods can be learned and practiced in advance. These can help in the event of a future attack. Home Care: 1) Rest today until feeling back to normal. 2) If symptoms return: Sit or lie down. Remember that what is happening to you is temporary and will pass. Use the relaxation methods you have learned. It is no longer recommended to breathe into a paper bag. Follow Up with your doctor or as directed by our staff if symptoms recur. Get Prompt Medical Attention if any of the following occur: Increasing shortness of breath Fever of 100.0 F (38 C) or higher, or as directed by your healthcare provider Coughing up blood Chest pain that is made worse with each breath Redness, pain or swelling of the leg Ringing in your ears, Severe headache Weakness or fainting Dyspnea (Shortness Of Breath) Shortness of Breath (also known as "Dyspnea") is the sense that you can't catch your breath or can't get enough air. Dyspnea can be caused by many different conditions such as: Acute asthma attack Worsening of emphysema (also called "COPD") -- a lung diseasethat is caused by smoking A mucus plug blocks a large air passage in the lung -- this can occur with emphysema or chronic bronchitis Congestive Heart Failure ("CHF") -- when a weak heart muscle allows excess fluid to collect inthe lungs Panic attacks, anxiety -- fear can cause rapid breathing ("hyperventilation") Pneumonia -- infection in the lung tissue Exposure to toxic fumes or smoke Pulmonary embolus (blood clot to the lung) Based on your visit today, the exact cause of your shortness of breath is not certain. Your tests do not show any of the serious causes of dyspnea. Sometimes, further testing is needed to find out if a serious problem exists. Therefore, it is important for you to watch for any new symptoms or worsening of your condition and follow up with your doctor as directed. Home Care: When your symptoms are better, resume your usual activities. If you smoke, you need to stop. Join a stop-smoking program or ask your doctor for help. Follow Up with your doctor or as advised by our staff. Get Prompt Medical Attention if any of the following occur: Increasing shortness of breath or wheezing Redness, pain or swelling in one leg Swelling in both legs or ankles Unexpected weight gain Chest, arm, shoulder, neck or upper back pain Dizziness, weakness or fainting Palpitations (the sense that your heart is fluttering, beating fast or hard) Fever of 100.4F (38C) or higher, or as directed by your healthcare provider Cough with dark colored or bloody sputum (mucus) You have been given the following additional information: Anxiety Reaction Hyperventilation Syndrome Dyspnea (Electronically signed by Fredi Loyola MD 03/18/2017 21:30)
== END 2017-03-17 18:51 | disposition home or self-care (01) ==
LOC: ED SRH 15:50
DX: R06.00 Dyspnea, unspecified (principal); F41.1 Generalized anxiety disorder; R06.4 Hyperventilation; J34.89 Other specified disorders of nose and nasal sinuses; Z87.891 Personal history of nicotine dependence; Z88.2 Allergy status to sulfonamides; Z88.5 Allergy status to narcotic agent
CPT/HCPCS: 90004; 90100; 90616; 91320; 91556; 92235; 92530; 92610; 95059